=== PATIENT | female | born 1970 | race African-American/Black ===

== ENCOUNTER 2021-01-19 11:17 | Emergency (ER) | payer SELFPAY ==
[~2021-01-19] VITALS: Ht 175.3 cm; Wt 60.8 kg
--- NOTE | 2021-01-19 11:26 | NUR ---
pt walked out, LWBS BY .
== END 2021-01-19 11:33 | disposition left against medical advice (07) ==
LOC: ER 11:17
DX: Z53.21 Procedure and treatment not carried out due to patient leaving prior to being seen by health care provider (principal)

== ENCOUNTER 2021-02-07 20:36 | Emergency (ER) | payer SELFPAY ==
--- NOTE | 2021-02-07 22:50 | NUR ---
Patient was just called to be traiged due to no beds available and short staff. Patient was not in waiting room or outside of ER.
--- NOTE | 2021-02-07 23:30 | NUR ---
Patient was called to be traiged but was not present in waiting room or outside of ER
--- NOTE | 2021-02-08 00:24 | NUR ---
Patient was called but was not present in the waiting room or outside of ER. PATIENT WAS NOT TRAIGED OR SEEN BY [facility].
== END 2021-02-08 00:25 | disposition left against medical advice (07) ==
LOC: ER 20:48
DX: Z53.21 Procedure and treatment not carried out due to patient leaving prior to being seen by health care provider (principal)